=== PATIENT | male | born 1995 | race Caucasian/White ===

== ENCOUNTER 2016-10-15 10:20 | Emergency (ER) | payer OTHER ==
--- NOTE | ~2016-10-15 | CR20 ---
[facility]. [facility] A Service of [facility] & [facility] RADIOLOGY TEXT RESULTS PATIENT: GRAZYNA KERR LOCATION: SED : [birth year] UNIT #: [id number] AGE: [address]: West Bowen MD SEX: M ORDER DR: [id number] [place] [id number] E MR#: [id number] Acc #: [id number] NAME: GRAZYNA KERR : 1995 SEX: M STUDY DATE/TIME: 10/15/2016 11:17 UNIT: SED ROOM: STUDY DESCRIPTION: CR Ankle Min 3 Views Lt Attending Physician: West Bowen M.D. Ordering Physician: West Bowen M.D. Primary Care Physician: Ryan Ying Aprn MEDICAL IMAGING REPORT This report is preliminary unless electronic signature is present. EXAM Ankle, 3 views, left. HISTORY Rough-housing and wrestling 10/03/2016 with pain in left foot and ankle since. COMMENT Three views of the left ankle are reviewed. There is circumferential soft tissue swelling at the level of the ankle and more particular soft tissue swelling seen anterior to the tibiotalar joint which could be a joint effusion. Please correlate for clinical evidence of soft tissue injury. There is no acute fracture or dislocation or radiopaque foreign body. IMPRESSION Soft tissue swelling and possibly joint effusion but no acute fracture dislocation or radiopaque foreign body suspected left ankle. Dictated by... Sagrario Michaels M.D. THIS IS AN ELECTRONICALLY VERIFIED REPORT Sagrario Michaels M.D. at 10/16/2016 8:08 AM JESICA/mark TD: 10/15/2016 16:49 JOB #: [id number] MEDICAL IMAGING REPORT Page 1 of 1
--- NOTE | ~2016-10-15 | CR126 ---
[facility] A Service of [facility] RADIOLOGY TEXT RESULTS PATIENT: GRAZYNA KERR LOCATION: SED : [birth year] UNIT #: [id number] AGE: [address]: West Bowen MD SEX: M ORDER DR: [id number] [place] [address] [id number] E MR#: [id number] Acc #: [id number] NAME: GRAZYNA KERR : 1995 SEX: M STUDY DATE/TIME: 10/15/2016 11:17 UNIT: SED ROOM: STUDY DESCRIPTION: CR Foot Complete Min 3 View Lt Attending Physician: West Bowen M.D. Ordering Physician: West Bowen M.D. Primary Care Physician: Ryan Ying Aprn MEDICAL IMAGING REPORT This report is preliminary unless electronic signature is present. EXAM Foot, 3 views, left complete. HISTORY Left foot pain starting 10/03/2016, when the patient was rough-housing/wrestling. COMMENT Three views left foot are reviewed. COMPARISON There is no prior. FINDINGS No acute fracture, dislocation, or radiopaque foreign body. Suspect some soft tissue swelling at the level of the ankle. See the separate ankle films. IMPRESSION Negative plain film assessment of the left foot. Suspect some soft tissue swelling at the level of the ankle, and please see the separate ankle films. Dictated by... Sagrario Michaels M.D. THIS IS AN ELECTRONICALLY VERIFIED REPORT Sagrario Michaels M.D. at 10/16/2016 8:08 AM [facility] A Service of [facility] RADIOLOGY TEXT RESULTS PATIENT: GRAZYNA KERR LOCATION: SED : [birth year] UNIT #: [id number] AGE: [address]: West Bowen MD SEX: M ORDER DR: Shanique TD: 10/15/2016 16:51 JOB #: [id number] MEDICAL IMAGING REPORT Page 1 of 1
== END 2016-10-15 12:40 | disposition home or self-care (01) ==
LOC: SED 10:20 → EDBD 10:48 → SED 12:40
DX: S93.432A Sprain of tibiofibular ligament of left ankle, initial encounter (principal); S93.422A Sprain of deltoid ligament of left ankle, initial encounter; F41.9 Anxiety disorder, unspecified; Z87.891 Personal history of nicotine dependence; X58.XXXA Exposure to other specified factors, initial encounter; Y92.410 Unspecified street and highway as the place of occurrence of the external cause
CPT/HCPCS: 29540; 73610; 73630; 99283